=== PATIENT | female | born 1970 ===

== ENCOUNTER 2017-05-07 09:27 | Outpatient (CLI) | payer OTHER ==
[2017-05-07 10:27] LABS: BASOPHILS % (AUTO) 0.7 % (0.0-2.0); EOSINOPHILS # (AUTO) 0.1 K/uL (0.0-0.7); EOSINOPHILS % (AUTO) 1.1 % (0.0-7.0); HEMOGLOBIN 13.9 g/dL (10.9-14.3); LYMPHOCYTES # (AUTO) 2.3 K/uL (20.0-40.0); LYMPHOCYTES % (AUTO) 33.8 % (20.5-51.5); MEAN CORPUSCULAR HEMOGLOBIN 31.6 uug (24.7-32.8); MEAN CORPUSCULAR HGB CONC 35 g/dL (32.3-35.6); MEAN CORPUSCULAR VOLUME 91.3 fL (75.5-95.3); MONOCYTES # (AUTO) 0.4 K/uL (2.0-10.0); MONOCYTES % (AUTO) 5.8 % (0.0-11.0); NEUTROPHILS # (AUTO) 3.9 K/uL (1.8-8.9); NEUTROPHILS % (AUTO) 58.6 % (38.5-71.5); PLATELET COUNT (AUTO) 183 K/uL (179-408); RED BLOOD CELL COUNT(AUTO) 4.38 MIL/uL (3.63-4.92); WHITE BLOOD COUNT (AUTO) 6.7 K/uL (3.8-11.8)
[2017-05-07 10:29] LABS: *BILIRUBIN,URIN NEGATIVE (NEGATIVE); *BLOOD, URINE 2+ (NEGATIVE); *CLARITY,URINE SLIGHTLY CLOUDY (CLEAR); *COLOR,URINE YELLOW (YELLOW); *KETONES,URINE NEGATIVE (NEGATIVE); *PROTEIN,URINE NEGATIVE (NEGATIVE); *UROBILINOGEN,URINE 0.2 E.U./dl (NORMAL); LEUKOCYTE ESTERASE ,URINE TRACE (NEGATIVE); NITRITE, URINE NEGATIVE (NEGATIVE); UGLUCOSE NEGATIVE (NEGATIVE)
[2017-05-07 10:37] LABS: CREATININE 0.9 mg/dL (0.6-1.3); POTASSIUM 3.7 mmol/L (3.5-5.1)
[2017-05-07 10:50] LABS: BACTERIA,URINE MANY /HPF (NONE SEEN); SQUAMOUS EPITHELIAL CELL,UR MANY /HPF (NONE SEEN)
[2017-05-07 10:52] LABS: MUCUS,URINE FEW /LPF (0-FEW)
== END 2017-05-07 23:59 | disposition home or self-care (01) ==
LOC: LAB 09:27
PROVIDERS: ATTEND Internal Medicine
DX: Z01.818 Encounter for other preprocedural examination (principal); G56.01 Carpal tunnel syndrome, right upper limb; G89.29 Other chronic pain; G56.02 Carpal tunnel syndrome, left upper limb; E66.01 Morbid (severe) obesity due to excess calories
CPT/HCPCS: 36415; 80048; 81001; 85025; 85730; A4663

== ENCOUNTER 2017-05-10 06:39 | Day surgery (SDC) | payer OTHER ==
[2017-05-10] MEDS ORDERED: PROPOFOL 200 MG/20 ML BOTTLE IV ONE (06:40)
[2017-05-10] MEDS ORDERED: CEFAZOLIN 1 G VIAL MC ONE (06:40)
[2017-05-10] MEDS ORDERED: ONDANSETRON 4 MG/2 ML VIAL IV ONE (06:40)
[2017-05-10] MEDS ORDERED: SEVOFLURANE 250 ML BOTTLE IH ONE (06:40)
[2017-05-10] MEDS ORDERED: LIDOCAINE HCL 2% 20 ML VIAL MC ONE (06:40)
[2017-05-10] MEDS ORDERED: DEXAMETHASONE SOD PHOSPHATE 4 MG INJ IV ONE (06:40)
[2017-05-10] MEDS ORDERED: POLYMYXIN B SULFATE 500,000 UNITS, BACITRACIN 50,000 UNITS, NORMAL SALINE 20 ML MC ONE ×3 (07:30)
[2017-05-10 07:32] LABS: *URINE HCG, QUAL NEGATIVE (NEGATIVE)
[2017-05-10] MEDS ORDERED: BUPIVACAINE PF 0.5% 30 ML VIAL ONE (07:34)
[2017-05-10] MEDS ORDERED: MIDAZOLAM HCL 2 MG/2 ML VIAL ONE (07:57)
[2017-05-10] MEDS ORDERED: ONDANSETRON 4 MG/2 ML VIAL ONE (09:37)
[2017-05-10] MEDS ORDERED: FENTANYL CITRATE 100 MCG/2 ML AMPUL ONE (09:37)
[2017-05-10] MEDS ORDERED: TRAMADOL HCL 50 MG TABLET ONE (10:31)
== END 2017-05-10 11:13 | disposition home or self-care (01) ==
LOC: DS 06:39
PROVIDERS: ATTEND Orthopaedic Surgery
DX: G56.01 Carpal tunnel syndrome, right upper limb (principal); E66.9 Obesity, unspecified; Z68.32 Body mass index [BMI] 32.0-32.9, adult
CPT/HCPCS: 64721; 84703; J2250; J2405; J3010; J3490 ×3; J7120; A4649; J0690; J1100